=== PATIENT | female | born 1940 | race African-American/Black ===

== ENCOUNTER → 2017-03-26 | Outpatient (CLI) | payer MEDICARE, OTHER ==
--- NOTE | 2017-03-28 19:36 | RADRPT ---
Echocardiogram Report Patient Name: ADDIE HARVEY Gender: Female Date: 1940 Study Date: 26-Mar-2017 Automotive Engineering Technician: Johanne [facility] Location: EKG Ref. Physician: JOSÉ MIGUEL ACEVES Quality: Technically Difficult Study Procedures: Transthoracic echocardiogram with complete 2D, M-Mode, and doppler examination. Indications: Cardiac Arrythmia. 2D/M Mode Doppler Measurement Value Normal Ranges Measurement Value Normal Ranges LVIDd 2D 3.4 3.5 - 5.6 cm AV Peak Koko 1.2 m/sec LVIDs 2D 2.3 2.1 - 4.1 cm AV Peak PG 5.7 mmHg FS 2D 32.0 % LVOT Peak Koko 1.0 m/sec LVPWd 2D 1.0 0.6 - 1.1 cm LVOT Peak PG 3.7 mmHg IVSd 2D 1.0 0.6 - 1.1 cm MV E Peak Koko 0.6 m/sec AoR Diam 2D 2.5 2.0 - 3.7 cm MV A Peak Koko 0.8 m/sec EF 2D 61.0 50.0 - 65.0 % MV Decel Time 198 msec LA Dimen 2D 3.5 2.3 - 4.0 cm Lateral E` 0.1 m/sec IVC Diam 0.8 1.2 - 2.0 Septal E` 0.0 m/sec TR Peak Koko 2.8 m/sec TR Peak PG 31.0 mmHg RVSP 34.0 mmHg Findings Left Ventricle: Lower limits of normal systolic function. Normal left ventricular cavity size. Normal left ventricular wall thickness. Ejection fraction is visually estimated at 50 %. Tissue Doppler/Mitral Doppler indices are consistent with impaired relaxation (Stage I diastolic dysfunction). Right Ventricle: Normal right ventricular size. Normal right ventricular systolic function. Left Atrium: The left atrium is normal in size. Right Atrium: The right atrium is normal in size. Mitral Valve: Mild mitral leaflet calcification. Mild mitral annular calcification. Trace mitral regurgitation. Aortic Valve: Aortic sclerosis without stenosis. Trace aortic valve regurgitation. Tricuspid Valve: Normal appearance of the tricuspid valve. Estimated peak PA systolic pressure 34 mmHg. There is mild tricuspid regurgitation. Pulmonic Valve: Normal pulmonic valve appearance. There is trace pulmonic regurgitation. Pericardium: Normal pericardium with no significant pericardial effusion. There is an anterior echo free space consistent with epicardial fat pad. Aorta: Normal aortic root. IVC: Normal size and normal respiratory collapse consistent with normal right atrial pressure. Conclusions 1.Technically poor quality echo. 2.Lower limits of normal systolic function. Normal left ventricular cavity size. Normal left ventricular wall thickness. Ejection fraction is visually estimated at 50 %. Tissue Doppler/Mitral Doppler indices are consistent with impaired relaxation (Stage I diastolic dysfunction). 3.Mild mitral leaflet calcification. Mild mitral annular calcification. Trace mitral regurgitation. 4.Aortic sclerosis without stenosis. Trace aortic valve regurgitation. 5.Normal appearance of the tricuspid valve. Estimated peak PA systolic pressure 34 mmHg. There is mild tricuspid regurgitation. 6.Normal pulmonic valve appearance. There is trace pulmonic regurgitation. Electronically Signed By: José Miguel Aceves 28-Mar-2017 19:34:44 -0700 Patient Name: ADDIE HARVEY Study Date: 26-Mar-2017 [id number]
== END | disposition home or self-care (01) ==
LOC: EKG 08:24
PROVIDERS: ATTEND Internal Medicine
DX: I49.9 Cardiac arrhythmia, unspecified (principal); I25.811 Atherosclerosis of native coronary artery of transplanted heart without angina pectoris
CPT/HCPCS: 93306

== ENCOUNTER → 2017-05-08 | Outpatient (CLI) | payer MEDICARE, OTHER ==
--- NOTE | 2017-05-08 22:17 | RADRPT ---
Echocardiogram Report Patient Name: ADDIE HARVEY Gender: Female Date: 1940 Study Date: 08-May-2017 Oil Dispatcher: Johanne [facility] Location: O Ref. Physician: JOSÉ MIGUEL ACEVES Quality: Technically Difficult Study Procedures: Transthoracic echocardiogram with complete 2D, M-Mode, and doppler examination. Indications: Cardiac Arrhythmia. 2D/M Mode Doppler Measurement Value Normal Ranges Measurement Value Normal Ranges LVIDd 2D 4.5 3.5 - 5.6 cm AV Peak Koko 1.8 m/sec LVIDs 2D 2.8 2.1 - 4.1 cm AV Peak PG 12.8 mmHg LVPWd 2D 1.0 0.6 - 1.1 cm LVOT Peak Koko 1.1 m/sec IVSd 2D 1.0 0.6 - 1.1 cm LVOT Peak PG 4.5 mmHg AoR Diam 2D 2.6 2.0 - 3.7 cm MV E Peak Koko 0.7 m/sec EDV 2D 91.7 cm3 MV A Peak Koko 0.8 m/sec ESV 2D 23.1 cm3 MV E/A 0.9 LA Dimen 2D 3.2 2.3 - 4.0 cm MV Decel Time 302 msec MV Decel [place] 2 MV E/A 0.9 TR Peak Koko 2.6 m/sec TR Peak PG 28.0 mmHg RVSP 31.0 mmHg Findings Left Ventricle: Normal left ventricular systolic function. Normal left ventricular cavity size. Normal left ventricular wall thickness. Ejection fraction is visually estimated at 60 %. Tissue Doppler/Mitral Doppler indices are consistent with impaired relaxation (Stage I diastolic dysfunction). Right Ventricle: Normal right ventricular size. Normal right ventricular systolic function. Left Atrium: The left atrium is normal in size. Right Atrium: The right atrium is normal in size. Mitral Valve: Mild mitral leaflet calcification. Mild mitral annular calcification. Trace mitral regurgitation. Aortic Valve: Normal appearance of the aortic valve. No significant aortic stenosis or insufficiency. Tricuspid Valve: Tricuspid valve not well visualized. Estimated peak PA systolic pressure 31 mmHg. There is mild tricuspid regurgitation. Pulmonic Valve: Pulmonic valve not well visualized. There is trace pulmonic regurgitation. Pericardium: There is an anterior echo free space consistent with epicardial fat pad. Aorta: Normal aortic root. IVC: Normal size and normal respiratory collapse consistent with normal right atrial pressure. Conclusions 1.Normal left ventricular systolic function. Normal left ventricular cavity size. Normal left ventricular wall thickness. Ejection fraction is visually estimated at 60 %. Tissue Doppler/Mitral Doppler indices are consistent with impaired relaxation (Stage I diastolic dysfunction). 2.Mild mitral leaflet calcification. Mild mitral annular calcification. Trace mitral regurgitation. 3.Tricuspid valve not well visualized. Estimated peak PA systolic pressure 31 mmHg. There is mild tricuspid regurgitation. 4.Pulmonic valve not well visualized. There is trace pulmonic regurgitation. 5.There is an anterior echo free space most probable consistent with epicardial fat pad versus trivial to small anterior pericardial effusion. Electronically Signed By: José Miguel Aceves 08-May-2017 22:16:10 -0800 Patient Name: ADDIE HARVEY Study Date: 08-May-2017 [id number]
--- NOTE | 2017-05-08 22:17 | RADRPT ---
Echocardiogram Report Patient Name: ADDIE HARVEY Gender: Female Date: 1940 Study Date: 08-May-2017 Application Development Consultant: Johanne [facility] Location: O Ref. Physician: JOSÉ MIGUEL ACEVES Quality: Technically Difficult Study Procedures: Transthoracic echocardiogram with complete 2D, M-Mode, and doppler examination. Indications: Cardiac Arrhythmia. 2D/M Mode Doppler Measurement Value Normal Ranges Measurement Value Normal Ranges LVIDd 2D 4.5 3.5 - 5.6 cm AV Peak Koko 1.8 m/sec LVIDs 2D 2.8 2.1 - 4.1 cm AV Peak PG 12.8 mmHg LVPWd 2D 1.0 0.6 - 1.1 cm LVOT Peak Koko 1.1 m/sec IVSd 2D 1.0 0.6 - 1.1 cm LVOT Peak PG 4.5 mmHg AoR Diam 2D 2.6 2.0 - 3.7 cm MV E Peak Koko 0.7 m/sec EDV 2D 91.7 cm3 MV A Peak Koko 0.8 m/sec ESV 2D 23.1 cm3 MV E/A 0.9 LA Dimen 2D 3.2 2.3 - 4.0 cm MV Decel Time 302 msec MV Decel [place] 2 MV E/A 0.9 TR Peak Koko 2.6 m/sec TR Peak PG 28.0 mmHg RVSP 31.0 mmHg Findings Left Ventricle: Normal left ventricular systolic function. Normal left ventricular cavity size. Normal left ventricular wall thickness. Ejection fraction is visually estimated at 60 %. Tissue Doppler/Mitral Doppler indices are consistent with impaired relaxation (Stage I diastolic dysfunction). Right Ventricle: Normal right ventricular size. Normal right ventricular systolic function. Left Atrium: The left atrium is normal in size. Right Atrium: The right atrium is normal in size. Mitral Valve: Mild mitral leaflet calcification. Mild mitral annular calcification. Trace mitral regurgitation. Aortic Valve: Normal appearance of the aortic valve. No significant aortic stenosis or insufficiency. Tricuspid Valve: Tricuspid valve not well visualized. Estimated peak PA systolic pressure 31 mmHg. There is mild tricuspid regurgitation. Pulmonic Valve: Pulmonic valve not well visualized. There is trace pulmonic regurgitation. Pericardium: There is an anterior echo free space consistent with epicardial fat pad. Aorta: Normal aortic root. IVC: Normal size and normal respiratory collapse consistent with normal right atrial pressure. Conclusions 1.Normal left ventricular systolic function. Normal left ventricular cavity size. Normal left ventricular wall thickness. Ejection fraction is visually estimated at 60 %. Tissue Doppler/Mitral Doppler indices are consistent with impaired relaxation (Stage I diastolic dysfunction). 2.Mild mitral leaflet calcification. Mild mitral annular calcification. Trace mitral regurgitation. 3.Tricuspid valve not well visualized. Estimated peak PA systolic pressure 31 mmHg. There is mild tricuspid regurgitation. 4.Pulmonic valve not well visualized. There is trace pulmonic regurgitation. 5.There is an anterior echo free space most probable consistent with epicardial fat pad versus trivial to small anterior pericardial effusion. Electronically Signed By: José Miguel Aceves 08-May-2017 22:16:10 -0800 Patient Name: ADDIE HARVEY Study Date: 08-May-2017 [id number]
--- NOTE | 2017-05-08 22:17 | RADRPT ---
Echocardiogram Report Patient Name: ADDIE HARVEY Gender: Female Date: 1940 Study Date: 08-May-2017 Survey Worker: Johanne [facility] Location: O Ref. Physician: JOSÉ MIGUEL ACEVES Quality: Technically Difficult Study Procedures: Transthoracic echocardiogram with complete 2D, M-Mode, and doppler examination. Indications: Cardiac Arrhythmia. 2D/M Mode Doppler Measurement Value Normal Ranges Measurement Value Normal Ranges LVIDd 2D 4.5 3.5 - 5.6 cm AV Peak Koko 1.8 m/sec LVIDs 2D 2.8 2.1 - 4.1 cm AV Peak PG 12.8 mmHg LVPWd 2D 1.0 0.6 - 1.1 cm LVOT Peak Koko 1.1 m/sec IVSd 2D 1.0 0.6 - 1.1 cm LVOT Peak PG 4.5 mmHg AoR Diam 2D 2.6 2.0 - 3.7 cm MV E Peak Koko 0.7 m/sec EDV 2D 91.7 cm3 MV A Peak Koko 0.8 m/sec ESV 2D 23.1 cm3 MV E/A 0.9 LA Dimen 2D 3.2 2.3 - 4.0 cm MV Decel Time 302 msec MV Decel [place] 2 MV E/A 0.9 TR Peak Koko 2.6 m/sec TR Peak PG 28.0 mmHg RVSP 31.0 mmHg Findings Left Ventricle: Normal left ventricular systolic function. Normal left ventricular cavity size. Normal left ventricular wall thickness. Ejection fraction is visually estimated at 60 %. Tissue Doppler/Mitral Doppler indices are consistent with impaired relaxation (Stage I diastolic dysfunction). Right Ventricle: Normal right ventricular size. Normal right ventricular systolic function. Left Atrium: The left atrium is normal in size. Right Atrium: The right atrium is normal in size. Mitral Valve: Mild mitral leaflet calcification. Mild mitral annular calcification. Trace mitral regurgitation. Aortic Valve: Normal appearance of the aortic valve. No significant aortic stenosis or insufficiency. Tricuspid Valve: Tricuspid valve not well visualized. Estimated peak PA systolic pressure 31 mmHg. There is mild tricuspid regurgitation. Pulmonic Valve: Pulmonic valve not well visualized. There is trace pulmonic regurgitation. Pericardium: There is an anterior echo free space consistent with epicardial fat pad. Aorta: Normal aortic root. IVC: Normal size and normal respiratory collapse consistent with normal right atrial pressure. Conclusions 1.Normal left ventricular systolic function. Normal left ventricular cavity size. Normal left ventricular wall thickness. Ejection fraction is visually estimated at 60 %. Tissue Doppler/Mitral Doppler indices are consistent with impaired relaxation (Stage I diastolic dysfunction). 2.Mild mitral leaflet calcification. Mild mitral annular calcification. Trace mitral regurgitation. 3.Tricuspid valve not well visualized. Estimated peak PA systolic pressure 31 mmHg. There is mild tricuspid regurgitation. 4.Pulmonic valve not well visualized. There is trace pulmonic regurgitation. 5.There is an anterior echo free space most probable consistent with epicardial fat pad versus trivial to small anterior pericardial effusion. Electronically Signed By: José Miguel Aceves 08-May-2017 22:16:10 -0800 Patient Name: ADDIE HARVEY Study Date: 08-May-2017 [id number]
== END | disposition home or self-care (01) ==
LOC: EKG 09:56
PROVIDERS: ATTEND Internal Medicine
DX: I49.9 Cardiac arrhythmia, unspecified (principal)
CPT/HCPCS: 93306

== ENCOUNTER → 2017-10-24 | Outpatient (CLI) | END | disposition home or self-care (01) ==